=== PATIENT | male | born 1965 | race Caucasian/White ===

== ENCOUNTER → 2018-06-21 | Day surgery (SDC) | payer OTHER ==
[~2018-06-21] VITALS: Ht 180.3 cm; Wt 113.4 kg
[~2018-06-21] MED LIST: PERCOCET 5-3251 EACH PO
--- NOTE | 2018-06-21 18:23 | Operative Report ---
Operative/Inv Procedure Report Surgery Date: 06/21/18 Name of Procedure: Open repair of ventral hernia with ventralex mesh patch Pre-Operative Diagnosis: Umbilical hernia Post-Operative Diagnosis: Multiple ventral hernias Estimated Blood Loss: scant Surgeon/Compliance Review Specialist: Cristopher LUGO,Raul Mccain APRN Anesthesia: general endotracheal tube Specimens: None Complications: None Operative/Procedure Note Note: The patient was placed on the operating table in the supine position. The periumbilical area was prepped and draped in the usual sterile manner. After adequate IV sedation was obtained 0.5% Marcaine was locally infiltrated in the infraumbilical area. An infraumbilical incision was made and carried down through the skin and subcutaneous tissue. Bleeding points were controlled with electrocautery device. The base of the umbilicus was amputated from the fascia with Metzenbaum scissors. The patient appeared to have a small fat-containing fascial defect. On further dissection superiorly 3 other fascial defects which are fat-containing were found. At this point with the patient straining a bit too much the decision was made to change the case to a general anesthesia. The patient was intubated by anesthesia without difficulty. The preperitoneal fat was reduced and the fascial defects were connected by incising the narrow fascial bridges between them. One moderate sized defect was created. Blunt dissection in the preperitoneal plane freed up the fascia circumferentially with no other defects palpated. A 6 cm ventralex patch was soaked in bacitracin antibiotic solution. This was then placed into the defect. The mesh was sutured to the undersurface of the fascia with a running 0 Vicryl circumferentially. At the end of the closure no defects between the mesh and the fascia were noted. The tails of the mesh were cut off. The area was irrigated out with bacitracin antibiotic solution. Hemostasis was noted to be good. The base of the umbilicus was tacked to fascia tissue with a 3-0 Vicryl suture. Subcutaneous tissue was closed with interrupted 3-0 Vicryl sutures. The skin was closed in a running subcuticular 5-0 Vicryl suture. Steri-Strips and a sterile dressing were applied. The patient tolerated the procedure well and was taken to the recovery room with stable vital signs.
== END ==
LOC: STS 02:43
DX: K43.9 Ventral hernia without obstruction or gangrene (principal)
CPT/HCPCS: 36415; J0131; J0690; J2250; J3490